=== PATIENT | male | born 1975 | race Caucasian/White ===

== ENCOUNTER → 2016-11-22 | Outpatient (CLI) | payer OTHER ==
[2016-11-22 09:18] LABS: CALCIUM 9.1 mg/dL (8.5-10.1); CREATININE 1.3 mg/dL (0.7-1.3); GFR 60.5; POTASSIUM 4.2 mmol/L (3.5-5.1)
[2016-11-22 09:19] LABS: CHOLESTEROL/HDL RATIO 6.3
== END | disposition home or self-care (01) ==
LOC: LAB 08:35
PROVIDERS: ATTEND Family Medicine
DX: I10 Essential (primary) hypertension (principal)
CPT/HCPCS: 36415; 80048; 80061

== ENCOUNTER → 2020-02-15 | Outpatient (CLI) | payer OTHER ==
[~2020-02-15] MED LIST: ALPR0.254 PO; ATOR10TA60 PO; BUPR150T15 PO; [UNRECOGNIZED DRUG - CODE] PO
--- NOTE | 2020-02-15 12:50 | PDOC1 ---
INITIAL PAIN CONSULT DATE OF SERVICE: DOS: DATE: 02/15/20 TIME: 12:40 CHIEF COMPLAINT: Chief Complaint: Neck and bilateral shoulder and upper extremity pain Low back and bilateral hip and lower extremity pain HISTORY OF PRESENT ILLNESS: 44-year-old male presents with history of pain neck bilateral shoulders and upper extremities as well as low back and bilateral hips and lower extremities since 1992 gradually increasing not result of any specific injury or accident he is aware of but he reports he was working for [employer] at the time and had multiple injuries of his shoulders neck upper and mid and lower back during that time. Patient reports now the pain is worse in the base the neck and shoulders and the upper extremities left essentially equal to right. Patient ports pain is worse with repetitive motions reaching over his head with his hands weight lifting driving sleeping is difficult secondary to the pain as well but generally does not awaken him from sleep it is hard to get to sleep because of the pain and positioning patient reports does not affect his bowel bladder control or his ability to walk significantly he has had physical therapy as recently as this year and [facility] also epidural injections in 2012 at outside facility which were helpful as well patient is taking Tylenol [id number] is not been decreasing the pain significantly is also tried Advil and Motrin which is not decreasing as well and continues to do exercises on his own which he learned from physical therapy which he is recently completed. Patient rates his disability rating 0-10 10 being the worst is a 6 with family home responsibilities 7 with recreation to a social activity and occupational activities. Current pain is constant stabbing intermittent in intensity throbbing in the low back radiating shooting in the upper extremities equally. Patient have MRI scan of the cervical and lumbar spines showing degenerative disc disease C5-6 with posterior disc osteophyte complex causing partial effacement of the ventral CSF with mild bilateral foraminal narrowing without nerve root impingement. Lumbar spine showed 5 S1 anterolisthesis of L5 relative to S1 with bilateral L5 spondylolysis, left foraminal disc bulging and endplate osteophyte formation with marked left foraminal stenosis right foraminal disc bulging and anterolisthesis contribute to moderate right foraminal narrowing as well. PAST MEDICAL HISTORY: PMH: Arthritis, hypertension PREVIOUS SURGERIES: Past Surgical Hx: Inguinal hernia repair 2017 CURRENT MEDICATIONS: Current Meds: Active Scripts Medications Dose Route/Sig Max Daily Dose Days Date Category Atorvastatin Calcium 10 Mg Tablet Unknown Dose PO HS 02/15/20 Reported Zestril (Lisinopril) 2.5 Mg Tablet Unknown Dose PO DAILY 02/15/20 Reported Alprazolam 0.25 Mg Tablet Unknown Dose PO PRN Q6HRS PRN 02/15/20 Reported Wellbutrin Xl (Bupropion Hcl) 150 Mg Tab.er.24h Unknown Dose PO DAILY 02/15/20 Reported ALLERGIES; Allergies: Coded Allergies: tramadol (Verified Allergy, Intermediate, shaking, 02/15/20) FAMILY HISTORY: Family Hx: Leukemia SOCIAL HISTORY: Social Hx: Patient drinks alcohol about 2 drinks a week does not smoke use any illegal illicit or recreational drugs is lives with his spouse has 1 child living at home lives in [facility] REVIEW OF SYSTEMS: ROS: Positive for those items mentioned in history of present illness, all systems are reviewed, otherwise negative, is complete full and well-documented on patient's chart PHYSICAL EXAM: VS: Blood pressure is 136/94 pulse 59 respirations 18 temperature 90.1 F height is 5 feet 6 inches weight is 187 pounds PE: PHYSICAL EXAMINATION: GENERAL: The patient is awake, alert, oriented, appropriate, very pleasant demeanor HEENT: Shows normocephalic, atraumatic. Extraocular movements are intact and symmetrical. Oral cavity: Mucous membranes moist and pink. Dentition is intact. NECK: Shows anterior throat supple without palpable lymphadenopathy noted. Swallow reflex symmetrical. CHEST: Shows normal on inspection. Breath sounds are clear bilaterally, no rales rhonchi or wheezes. HEART: Shows S1, S2 clear. No murmurs auscultated. ABDOMEN: Soft, nontender, nondistended, obese. No palpable organomegaly is noted. No rebound or guarding demonstrated. BACK: Shows spine grossly in the midline. Normal-appearing cervical lordotic curvature. Cervical paraspinous muscles show symmetrical on inspection with palpation some moderate tenderness diffusely in the inferior aspect of the cervical paraspinous posterior bilaterally but without specific trigger points or radiation of pain, cervical spine shows good rotation of motion with some moderate tenderness with extension but not with forward flexion and mildly to moderately with right and left lateral rotation past 45 degrees closer to 90 degrees which is performed fully. There is slightly increased thoracic kyphosis, some minor flattening of the lumbar lordotic curvature. Lumbar paraspinous muscles show symmetrical on inspection, on palpation shows some moderate tenderness diffusely throughout the upper, middle and lower distribution of the paraspinous muscles bilaterally, without specific trigger p oints, without radiation of pain. The patient has good rotational motion of the lumbar spine, both laterally as well as extension and flexion without significant difficulty. No tenderness over the spinous processes, sacrum or sacroiliac regions. EXTREMITIES: Lower extremities show deep tendon reflexes 2 in the patellar and tendo calcaneus tendons. Motor exam is 5 on a scale of 5 with right dorsiflexion, extension, quadriceps and hamstring flexion and 5/5 on the left. Peripheral pulses are 1+ posterior tibial. No peripheral edema is noted bilaterally. Lower extremities are warm and dry to touch, equal in color and appearance. Upper extremities show deep tendon reflexes 2+ in the biceps and triceps tendons, motor exam is strong with convention planner strength rated 5 out of 5 as is bicep and triceps flexion. Shoulder shrug is strong and intact without loss of strength on resistance but with some significant pain in the base of the neck and bilateral shoulders with resistance but no loss of strength on resistance. Straight leg raise noted to be negative bilaterally. Gaenslen's and David's maneuvers are negative as well. The patient is able to stand, stand on his toes without difficulty or loss of balance walks with a normal-appearing gait does not appear to favor the right or left lower extremities not use any assistive devices to ambulate. SKIN: Shows warm and dry, good turgor. No edema. No sores, rashes or bruising throughout. IMPRESSION: Impression: 44-year-old male with long history low back bilateral hip and lower extremity pain, neck bilateral upper extremity pain in a radicular fashion MRI scans cervical and lumbar spines as noted Arthritis Hypertension Plan: Options were discussed with the patient including conservative med management is continued physical therapies interventional techniques he would like to pursue interventional techniques. As patient has done physical therapy and is continuing to do the exercises without significant long-term decrease in pain we did discuss a cervical epidural steroid injection using descriptions as well as anatomical model to describe the procedure. Patient will await preauthorization with his insurance provider will have him return for cervical epidural steroid injection, translaminar approach at the C6-7 level at that time. In the meantime patient will continue doing exercises we will try Medrol Dosepak as well patient was given instruction as well as side effects beware with the medication and will follow-up as scheduled. BASSEM GALINDO MD Feb 15, 2020 12:50
== END ==
LOC: PNCL 07:56
PROVIDERS: ATTEND Anesthesiology
DX: M50.30 Other cervical disc degeneration, unspecified cervical region (principal); M48.061 Spinal stenosis, lumbar region without neurogenic claudication; M25.78 Osteophyte, vertebrae; M19.90 Unspecified osteoarthritis, unspecified site; I10 Essential (primary) hypertension; Z98.890 Other specified postprocedural states; Z79.899 Other long term (current) drug therapy; Z88.8 Allergy status to other drugs, medicaments and biological substances
CPT/HCPCS: G0463

== ENCOUNTER → 2020-04-17 | Outpatient (CLI) | payer OTHER ==
[~2020-04-17] MED LIST changes: +DULO60CA6 PO; +IOHEXOL 180 MG/ML 10 ML VIAL. ONE; +methylPREDNISolone ACETATE 40 MG/ML VIAL. ONE; +methylPREDNISolone ACETATE 80 MG/ML VIAL. ONE
--- NOTE | 2020-04-17 09:20 | PDOC ---
Progress Note - Pain Clinic Date of Service: DOS: DATE: 04/17/20 TIME: 09:16 Diagnosis: Dx: Cervical radiculopathy with cervical degenerative disease and cervical spinal stenosis Lumbar radiculopathy with lumbar degenerative disc disease History or Present Illness: HPI: 44-year-old male returns for follow-up status post initial evaluation and Medrol Dosepak which he initially did very well with pain returning base the neck and shoulder more in the left upper extremity than the right but present bilaterally patient ports worse with walking standing using his upper extremities driving rates it is a 10 on scale 10 is worse with the past week 9 on average 6 its least is a 9 today patient reports is aching and dull radiating upper extremity most in the left side constant and severe at times patient describes it is rating the posterior shoulder also the lateral shoulder into the posterior tricep and some in the forearm with the driving. 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 Patient reports no overt motor motor loss but still significant fatigue in the left upper extremity only. Patient reports no new motor or sensory deficits or other complaints Physical Exam: VS: Pressure is 149/108 pulse 61 respirations are 16 temperature is 98.0 F height is 5 feet 6 inches weight is 187 pounds PE: PHYSICAL EXAMINATION: GENERAL: The patient is awake, alert, oriented, appropriate, very pleasant demeanor HEENT: Shows normocephalic, atraumatic. Extraocular movements are intact and symmetrical. Oral cavity: Mucous membranes moist and pink. NECK: Shows anterior throat supple without palpable lymphadenopathy noted. Swallow reflex symmetrical. CHEST: Shows normal on inspection. Breath sounds are clear bilaterally. HEART: Shows S1, S2 clear. No murmurs auscultated. ABDOMEN: Soft, nontender, nondistended. No palpable organomegaly is noted. No rebound or guarding demonstrated. BACK: Shows spine grossly in the midline. Normal-appearing cervical lordotic curvature. Cervical paraspinous muscles show symmetrical on inspection with palpation some moderate tenderness diffusely bilaterally diffusely without significant radiation. Patient is good rotation motion of the cervical spine both laterally as well as extension flexion without significant increase in pain. There is slightly increased thoracic kyphosis, some minor flattening of the lumbar lordotic curvature. The patient has good rotational motion of the lumbar spine, both laterally as well as extension and flexion without significant difficulty. No tenderness over the spinous processes, sacrum or sacroiliac regions. EXTREMITIES: Upper extremities show deep tendon reflexes 2+ in the biceps and triceps tendons. Motor exam is 5 on a scale of 5 with right green marketing specialist strength, triceps and biceps flexion and 5/5 on the left. Peripheral pulses are 2+ radial. No peripheral edema is noted bilaterally. Upper extremities are warm and dry to touch, equal in color and appearance. SKIN: Shows warm and dry, good turgor. No edema. No sores, rashes or bruising throughout. Procedure: Procedure: Options were discussed with the patient. Patient chart was reviewed his his current medication regimen updated current review of systems updated today as well. We will proceed with a cervical epidural steroid injection today with fluoroscopic guidance. Risks were discussed including but not limited to: Bleeding, infection, possibility of epidural hematoma and subsequent neurological compromise, dural puncture, headaches, spinal cord and/or nerve damage, side effects of steroid medication, and poor results regarding pain control. Patient understands wished to proceed. Patient will return to clinic in approximate 2 weeks for follow-up, was counseled as to return appointment activity level and side effects to be aware of. Medication Injected: Med Injected: Procedure cervical epidural steroid injection at the C6-7 level, using local anesthetic under sterile prep and drape using C-arm fluoroscopic guidance under local anesthesia medications injected ; 120 mg Depo-Medrol + 5 mL normal saline and 2 mL contrast; condition at discharge is stable patient tolerated procedure well. and had no complications Condition at Discharge: Condition at Discharge: Condition at discharge is stable, patient tolerated the procedure well and had no complications. BASSEM GALINDO MD Apr 17, 2020 09:20
== END | disposition home or self-care (01) ==
LOC: PNCL 08:09
PROVIDERS: ATTEND Anesthesiology
DX: M50.10 Cervical disc disorder with radiculopathy, unspecified cervical region (principal); M51.16 Intervertebral disc disorders with radiculopathy, lumbar region; M48.02 Spinal stenosis, cervical region; Z79.899 Other long term (current) drug therapy; Z88.8 Allergy status to other drugs, medicaments and biological substances
CPT/HCPCS: 62321; J1030; J1040; Q9965

== ENCOUNTER → 2020-04-28 | Outpatient (CLI) | payer OTHER ==
--- NOTE | 2020-04-28 12:52 | PDOC ---
Progress Note - Pain Clinic Date of Service: DOS: DATE: 04/28/20 TIME: 12:45 Diagnosis: Dx: Cervical radiculopathy with cervical degenerative disc disease and cervical spinal stenosis Lumbar radiculopathy lumbar degenerative disc disease History or Present Illness: HPI: 44-year male returns follow-up status post cervical epidurals or injection x1. Patient reports about 50% improvement in the base of the neck but his left arm is still significantly painful with radiating pain the posterior deltoid posterior tricep and into the forearm as well as the base the neck and shoulder on the left side. Patient reports still significant difficult to do daily activities working activities a little easier to get through the day since his injection but his left arm is still significantly painful patient rates his pain is a 10 on scale 10 is worse over the past week 9 on average 5 its least is a 9 today. Patient reports is aching and sharp shooting burning stabbing can be constant severe and unbearable in the left arm as well. Patient reports no loss of motor function no new bowel or bladder incontinence or other complaints. Physical Exam: VS: Blood pressure is 140/98 pulse 65 respirations are 18 temperature 90.4 F height is 5 feet 6 inches weight is 189 pounds PE: PHYSICAL EXAMINATION: GENERAL: The patient is awake, alert, oriented, appropriate, very pleasant demeanor HEENT: Shows normocephalic, atraumatic. Extraocular movements are intact and symmetrical. Oral cavity: Mucous membranes moist and pink. NECK: Shows anterior throat supple without palpable lymphadenopathy noted. Swallow reflex symmetrical. CHEST: Shows normal on inspection. Breath sounds are clear bilaterally. HEART: Shows S1, S2 clear. No murmurs auscultated. ABDOMEN: Soft, nontender, nondistended. No palpable organomegaly is noted. No rebound or guarding demonstrated. BACK: Shows spine grossly in the midline. Normal-appearing cervical lordotic curvature. Cervical paraspinous posterior shows symmetrical on inspection, with palpation there is some mild tenderness in the inferior aspect of the cervical paraspinous muscles are more on the left than the right but without specific trigger points without asymmetry or atrophy. Patient is good rotation motion cervical spine both laterally greater than 45 degrees right and left was full extension full forward flexion without significant increase in the pain. There is slightly increased thoracic kyphosis, some minor flattening of the lumbar lordotic curvature. EXTREMITIES: Upper extremities show deep tendon reflexes 2+ in the biceps and triceps tendons. Motor exam is 5 on a scale of 5 with right cafe lead strength, biceps and triceps flexion and 5/5 on the left. Peripheral pulses are 2+ radial. No peripheral edema is noted bilaterally. Upper extremities are warm and dry to touch, equal in color and appearance SKIN: Shows warm and dry, good turgor. No edema. No sores, rashes or bruising throughout. Procedure: Procedure: Options were discussed with the patient. Patient chart was reviewed his current medication regimen updated current review of systems updated today as well. We will proceed with a second in the series cervical epidural steroid injection with fluoroscopic guidance. Risks were discussed including but not limited to: Bleeding, infection, possibility of epidural hematoma and subsequent neurologic al compromise, dural puncture, headaches, spinal cord and/or nerve damage, side effects of steroid medication, and poor results regarding pain control. Patient understands wished to proceed. Patient will return to clinic approximate 2 weeks for follow-up with counselors return appointment activity level and side effects to be aware of. Medication Injected: Med Injected: Procedure cervical epidural steroid injection at the C6-7 level, using local anesthetic under sterile prep and drape using C-arm fluoroscopic guidance under local anesthesia medications injected ; 120 mg Depo-Medrol + 5 mL normal saline and 2 mL contrast; condition at discharge is stable patient tolerated procedure well. and had no complications Condition at Discharge: Condition at Discharge: Condition at discharge is stable, patient noted procedure well and had no complications. BASSEM GALINDO MD Apr 28, 2020 12:52
== END | disposition home or self-care (01) ==
LOC: PNCL 10:58
PROVIDERS: ATTEND Anesthesiology
DX: M50.123 Cervical disc disorder at C6-C7 level with radiculopathy (principal); M48.02 Spinal stenosis, cervical region; M51.16 Intervertebral disc disorders with radiculopathy, lumbar region; M47.897 Other spondylosis, lumbosacral region; M19.90 Unspecified osteoarthritis, unspecified site; I10 Essential (primary) hypertension; Z88.8 Allergy status to other drugs, medicaments and biological substances; Z79.899 Other long term (current) drug therapy; Z98.890 Other specified postprocedural states
CPT/HCPCS: 62321; J1030; J1040; Q9965